=== PATIENT | female | born 1995 | race Caucasian/White ===

== ENCOUNTER 2017-08-25 10:41 | Emergency (ER) | payer SELFPAY ==
[2017-08-25] MEDS ORDERED: NORMAL SALINE 1000 ML 1,000 ML IV ONE (10:48)
[2017-08-25] MEDS ORDERED: ONDANSETRON HCL INJ/PF 4 MG/2 ML SDV IV ONE (10:48)
--- NOTE | 2017-08-25 10:55 | ER Document Report ---
ED Medical Screen (RME) - General Chief Complaint: Nausea/Vomiting/Diarrhea Stated Complaint: VOMITING Mode of Arrival: Ambulatory Information source: Patient Notes: 22 y.o female presents to the ED with N/V/D of onset around 0500 this morning and notes that her daughter has had similar sx. Pt also notes that she is 9 days late on her menstrual cycle and would like to be tested. I have greeted and performed a rapid initial assessment of the patient. A comprehensive ED assessment and evaluation of the patient, analysis of test results, and completion of the medical decision making process will be conducted by additional ED providers. TRAVEL OUTSIDE OF THE [place] IN LAST 30 DAYS: No - Related Data Allergies/Adverse Reactions: No Known Allergies Allergy (Verified 08/25/17 10:49) Past Medical History - General Information source: Patient Last Menstrual Period: 9 days late Review of Systems - Review of Systems Constitutional: No symptoms reported EENT: No symptoms reported Cardiovascular: No symptoms reported Respiratory: No symptoms reported Gastrointestinal: See HPI, Diarrhea, Nausea, Vomiting Genitourinary: See HPI Female Genitourinary: See HPI, Other - 9 days late on cycle Musculoskeletal: No symptoms reported Skin: No symptoms reported Hematologic/Lymphatic: No symptoms reported Neurological/Psychological: No symptoms reported -: Yes All other systems reviewed and negative Physical Exam - Vital signs Vitals: Temp Pulse Resp BP Pulse Ox 98.3 F 96 16 112/66 96 08/25/17 10:44 08/25/17 10:44 08/25/17 10:44 08/25/17 10:44 08/25/17 10:44 - Notes Notes: Physical Exam: General: Alert, appears well. HEENT: Normocephalic. Atraumatic. PERRLA. Extraocular movements intact. Oropharynx clear. mucus membrane dry. Neck: Supple. Respiratory: No respiratory distress. Abdominal: Normal Inspection. No distension. Extremities: Moves all four extremities. Neurological: Normal cognition. AAOx4. Normal speech. Psychological: Normal affect. Normal Mood. Skin: Warm. Dry. Normal color. Course - Vital Signs Vital signs: Temp Pulse Resp BP Pulse Ox 98.3 F 96 16 112/66 96 08/25/17 10:44 08/25/17 10:44 08/25/17 10:44 08/25/17 10:44 08/25/17 10:44 Scribe Documentation - Scribe Written by Van:: Van Mckeon 08/25/17 1054 acting as scribe for :: Alireza
--- NOTE | 2017-08-25 11:25 | ER Document Report ---
ED GI/ - General Chief Complaint: Nausea/Vomiting/Diarrhea Stated Complaint: VOMITING Time Seen by Provider: 08/25/17 10:50 Mode of Arrival: Ambulatory Notes: 22-year-old female to emergency department with nausea vomiting and diarrhea. Daughter had the same a couple of days ago and required IV treatment at hospital. Daughter is doing better at this time. 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 Denies any significant abdominal pain. Patient is concerned because she has missed her period and is approximately 9 days late TRAVEL OUTSIDE OF THE [place] IN LAST 30 DAYS: No - HPI Patient complains to provider of: Diarrhea, Vomiting. No: Onset: This morning Timing/Duration: Gradual Quality of pain: Achy Severity at maximum: Moderate Context: denies: Bad food, Lifting, Out of the country travel, , Recent trauma, Other Vaginal bleeding (Compared to normal period): None - Related Data Allergies/Adverse Reactions: No Known Allergies Allergy (Verified 08/25/17 10:49) Past Medical History - General Information source: Patient Last Menstrual Period: 9 days late - Social History Smoking Status: Current Every Day Smoker Cigarette use (# per day): Yes Chew tobacco use (# tins/day): No Frequency of alcohol use: Social Drug Abuse: None Lives with: Family Family History: Reviewed & Not Pertinent Patient has suicidal ideation: No Patient has homicidal ideation: No Renal/ Medical History: Denies: Hx Peritoneal Dialysis Review of Systems - Review of Systems Constitutional: denies: Fever, Malaise, Weakness EENT: denies: Ear pain, Nose pain, Mouth pain Cardiovascular: denies: Palpitations, Heart racing, Orthopnea, Syncope, Dizziness, Lightheaded Respiratory: denies: Cough, Short of breath, Wheezing Gastrointestinal: Diarrhea, Nausea, Vomiting. denies: Abdominal pain Genitourinary: denies: Burning, Dysuria, Discharge Female Genitourinary: denies: , Irregular period, Vaginal discharge, Vaginal bleeding, Vaginal odor Musculoskeletal: denies: Back pain, Gout, Joint pain, Muscle pain Skin: denies: Lesions, Lumps, Rash Hematologic/Lymphatic: denies: Anemia, Blood clots, Easy bleeding Neurological/Psychological: denies: Confusion, Weakness, Numbness Physical Exam - Vital signs Vitals: Temp Pulse Resp BP Pulse Ox 98.3 F 96 16 112/66 96 08/25/17 10:44 08/25/17 10:44 08/25/17 10:44 08/25/17 10:44 08/25/17 10:44 Interpretation: Normal - General General appearance: Appears well, Alert - HEENT Head: Normocephalic, Atraumatic Eyes: Normal Pupils: PERRL - Respiratory Respiratory status: No respiratory distress Chest status: Nontender Breath sounds: Normal Chest palpation: Normal - Cardiovascular Rhythm: Regular Heart sounds: Normal auscultation Murmur: No - Abdominal Inspection: Normal Distension: No distension Bowel sounds: Normal Tenderness: Nontender Organomegaly: No organomegaly - Back Back: Normal, Nontender - Extremities General upper extremity: Normal inspection, Nontender, Normal color, Normal ROM , Normal temperature General lower extremity: Normal inspection, Nontender, Normal color, Normal ROM , Normal temperature, Normal weight bearing. No: Aleksandr's sign - Neurological Neuro grossly intact: Yes Cognition: Normal Orientation: AAOx4 [place] Coma Scale Eye Opening: Spontaneous [place] Coma Scale Verbal: Oriented Amrit Coma Scale Motor: Obeys Commands [place] Coma Scale Total: 15 Speech: Normal Motor strength normal: LUE, RUE, LLE, RLE Sensory: Normal - Psychological Associated symptoms: Normal affect, Normal mood - Skin Skin Temperature: Warm Skin Moisture: Dry Skin Color: Normal Course - Re-evaluation Re-evalutation: 08/25/17 11:47 Well-appearing female in no acute distress. Patient's hCG urine test was negative but patient is convinced that she is . Requested blood draw. Will oblige. We will give her another liter of normal saline as well as some Pepcid. Likely viral gastroenteritis but will continue to observe and get her feeling better before discharge 08/25/17 13:02 Urine Color YELLOW 08/25/17 10:57 Urine Appearance CLOUDY 08/25/17 10:57 Urine pH 8.0 (5.0-9.0) 08/25/17 10:57 Ur Specific [place] 1.028 08/25/17 10:57 Urine Protein 100 mg/dL (NEGATIVE) H 08/25/17 10:57 Urine Glucose (UA) NEGATIVE mg/dL (NEGATIVE) 08/25/17 10:57 Urine Ketones NEGATIVE mg/dL (NEGATIVE) 08/25/17 10:57 Urine Blood NEGATIVE (NEGATIVE) 03/17/18 10:57 Urine Nitrite NEGATIVE (NEGATIVE) 08/25/17 10:57 Ur Leukocyte Esterase NEGATIVE (NEGATIVE) 08/25/17 10:57 Urine WBC (Auto) 3 /HPF 08/25/17 10:57 Urine RBC (Auto) 5 /HPF 08/25/17 10:57 Not . Will DC at this time. - Vital Signs Vital signs: Temp Pulse Resp BP Pulse Ox 98.3 F 96 16 112/66 96 08/25/17 10:44 08/25/17 10:44 08/25/17 10:44 08/25/17 10:44 08/25/17 10:44 - Laboratory Laboratory results interpreted by me: 08/25/17 10:57 Urine Protein 100 H Discharge - Discharge Clinical Impression: Gastroenteritis Condition: Good Disposition: HOME, SELF-CARE Instructions: Antinausea Medication ([facility]), Gastroenteritis (adult) ([facility]) Additional Instructions: If symptoms get worse or you develop abdominal pain or worsening symptoms, blood in your stool or other concerns within the next 12-24 hours then please return. Prescriptions: Ondansetron [Zofran Odt 4 mg Tablet] 1 - 2 tab PO Q4H PRN #15 tab.rapdis PRN Reason: For Nausea/Vomiting Forms: Return to Work
[2017-08-25 11:28] LABS: APPEARANCE,URINE CLOUDY; BILIRUBIN,URINE NEGATIVE (NEGATIVE); COLOR,URINE YELLOW; GLUCOSE, URINE NEGATIVE (NEGATIVE); KETONES,URINE NEGATIVE (NEGATIVE); LEUKOCYTE ESTERASE,URINE NEGATIVE (NEGATIVE); NITRITE,URINE NEGATIVE (NEGATIVE); PROTEIN,URINE 100 mg/dL (NEGATIVE); URINE SPECIFIC GRAVITY 1.028; UROBILINOGEN,URINE NEGATIVE mg/dL (<2.0)
[2017-08-25] MEDS ORDERED: DEXTROSE 5%-NORMAL SALINE 1,000 ML IV ONE (11:44)
[2017-08-25] MEDS ORDERED: FAMOTIDINE INJ/PF 20 MG/2 ML SDV IV ONE (11:45)
[2017-08-25 13:26] VITALS: BP 107/60
== END 2017-08-25 13:31 | disposition home or self-care (01) ==
LOC: ER 10:41
DX: K52.9 Noninfective gastroenteritis and colitis, unspecified (principal); F17.210 Nicotine dependence, cigarettes, uncomplicated
CPT/HCPCS: 99283; 96361; 96374; 96375; 36415; 84702; 81025; 81001; J2405; J7030; S0028

== ENCOUNTER 2019-03-03 19:32 | Emergency (ER) | payer OTHER ==
--- NOTE | 2019-03-03 20:44 | ER Document Report ---
ED Medical Screen (RME) - General Chief Complaint: Abdominal Pain Stated Complaint: FLANK PAIN Time Seen by Provider: 03/03/19 20:28 Notes: 24-year-old female with PCOS presents to the emergency department for chief complaint of chronic right adnexal pain. Patient states that the pain has been present for 2 years and has recently gotten slightly worse. Patient states that when she reaches or turns to her right side it increases the pain. Patient is sexually active, denies any abnormal vaginal discharge but was "treated for chlamydia about a week ago and there is no more discharge", denies any urinary symptoms. Exam: Well-appearing in no acute distress, respirations are even and unlabored, abdominal exam deferred in triage I have greeted and performed a rapid initial assessment of this patient. A comprehensive ED assessment and evaluation of the patient, analysis of test results and completion of medical decision making process will be conducted by an additional ED providers. TRAVEL OUTSIDE OF THE [place] IN LAST 30 DAYS: No - Related Data Allergies/Adverse Reactions: No Known Allergies Allergy (Verified 08/25/17 10:49) Past Medical History Renal/ Medical History: Denies: Hx Peritoneal Dialysis Past Surgical History: Reports: Hx Oral Surgery - precancerous mouth lesion, Hx Tonsillectomy Physical Exam - Vital signs Vitals: Temp Pulse Resp BP Pulse Ox 98.5 F 81 14 134/69 H 100 03/03/19 19:43 03/03/19 19:43 03/03/19 19:43 03/03/19 19:43 03/03/19 19:43 Course - Vital Signs Vital signs: Temp Pulse Resp BP Pulse Ox 98.5 F 81 14 134/69 H 100 03/03/19 19:43 03/03/19 19:43 03/03/19 19:43 03/03/19 19:43 03/03/19 19:43
[2019-03-03 21:31] LABS: APPEARANCE,URINE CLOUDY; BILIRUBIN,URINE NEGATIVE (NEGATIVE); COLOR,URINE YELLOW; GLUCOSE, URINE NEGATIVE (NEGATIVE); KETONES,URINE NEGATIVE (NEGATIVE); LEUKOCYTE ESTERASE,URINE SMALL (NEGATIVE); NITRITE,URINE NEGATIVE (NEGATIVE); PROTEIN,URINE NEGATIVE (NEGATIVE); URINE SPECIFIC GRAVITY 1.014; UROBILINOGEN,URINE NEGATIVE mg/dL (<2.0)
--- NOTE | 2019-03-03 21:32 | RADIOLOGY REPORT (SQ) ---
EXAM DESCRIPTION: US PELVIS TRANSVAGINAL COMPLETED DATE/TME: 03/03/2019 20:44 CLINICAL HISTORY: 24 years, Female, RLQ pain hx PCOS Findings: Uterus is anteverted and measures 8.1 x 4.7 x 3.8 cm. IUD is in place. No abnormal uterine masses. Cervix is closed, measures 1.9 cm. Right ovary measures 3.7 x 2.7 x 2.4 cm. Left ovary measures 2.9 x 2.7 x 2.8 cm. Vascular flow preserved within both ovaries on color and spectral Doppler imaging. No abnormal adnexal lesions. No free fluid in the cul-de-sac. IMPRESSION: No abnormal adnexal masses. IUD is in place.
--- NOTE | 2019-03-03 23:40 | ER Document Report ---
ED General - General Chief Complaint: Abdominal Pain Stated Complaint: FLANK PAIN Time Seen by Provider: 03/03/19 20:28 Mode of Arrival: Ambulatory Information source: Patient TRAVEL OUTSIDE OF THE [place] IN LAST 30 DAYS: No - HPI Notes: Patient presents with a history of right lower quadrant abdominal pain. She states while she was working today she got the sudden onset of the pain. It was sharp and moderate. It was worse with movement and better with rest. It did radiate into her lower back. She states this is the typical pain she will get with her polycystic ovarian disease. She states upon arrival here her pain has now gone. She states the only thing she took today was 325 mg of Tylenol. She denies any vaginal discharge or bleeding. No fevers or vomiting. The pain was constant while lasted. - Related Data Allergies/Adverse Reactions: No Known Allergies Allergy (Verified 08/25/17 10:49) Past Medical History - General Information source: Patient - Social History Smoking Status: Current Every Day Smoker Frequency of alcohol use: None Drug Abuse: None Family History: Reviewed & Not Pertinent Patient has suicidal ideation: No Patient has homicidal ideation: No Renal/ Medical History: Denies: Hx Peritoneal Dialysis Past Surgical History: Reports: Hx Oral Surgery - precancerous mouth lesion, Hx Tonsillectomy Review of Systems - Review of Systems Constitutional: denies: Chills, Fever Cardiovascular: denies: Chest pain, Palpitations, Heart racing Gastrointestinal: Abdominal pain. denies: Diarrhea, Vomiting -: Yes All other systems reviewed and negative Physical Exam - Vital signs Vitals: Temp Pulse Resp BP Pulse Ox 98.5 F 81 14 134/69 H 100 03/03/19 19:43 03/03/19 19:43 03/03/19 19:43 03/03/19 19:43 03/03/19 19:43 Interpretation: Normal - General General appearance: Appears well, Alert - HEENT Head: Normocephalic, Atraumatic Eyes: Normal Pupils: PERRL - Respiratory Respiratory status: No respiratory distress Chest status: Nontender Breath sounds: Normal Chest palpation: Normal - Cardiovascular Rhythm: Regular Heart sounds: Normal auscultation Murmur: No - Abdominal Inspection: Normal Distension: No distension Bowel sounds: Normal Tenderness: Nontender Organomegaly: No organomegaly - Back Back: Normal, Nontender - Extremities General upper extremity: Normal inspection, Nontender, Normal color, Normal ROM, Normal temperature General lower extremity: Normal inspection, Nontender, Normal color, Normal ROM, Normal temperature, Normal weight bearing. No: Aleksandr's sign - Neurological Neuro grossly intact: Yes Cognition: Normal Orientation: AAOx4 Amrit Coma Scale Eye Opening: Spontaneous Amrit Coma Scale Verbal: Oriented Amrit Coma Scale Motor: Obeys Commands [place] Coma Scale Total: 15 Speech: Normal Motor strength normal: LUE, RUE, LLE, RLE Sensory: Normal - Psychological Associated symptoms: Normal affect, Normal mood - Skin Skin Temperature: Warm Skin Moisture: Dry Skin Color: Normal Course - Re-evaluation Re-evalutation: 03/03/19 23:38 Patient reassessed just now. Her abdomen is soft nontender and nondistended. Vital signs are unremarkable. Ultrasound and laboratories are unremarkable. - Vital Signs Vital signs: Temp Pulse Resp BP Pulse Ox 98.5 F 81 14 134/69 H 100 03/03/19 19:43 03/03/19 19:43 03/03/19 19:43 03/03/19 19:43 03/03/19 19:43 - Laboratory Laboratory results interpreted by me: 03/03/19 21:02 Urine Blood SMALL H Ur Leukocyte Esterase SMALL H 03/03/19 23:38 Laboratory 03/03/19 21:02 Urine Color YELLOW Urine Appearance CLOUDY Urine pH 6.0 Ur Specific [place] 1.014 Urine Protein NEGATIVE Urine Glucose (UA) NEGATIVE Urine Ketones NEGATIVE Urine Blood SMALL H Urine Nitrite NEGATIVE Urine Bilirubin NEGATIVE Urine Urobilinogen NEGATIVE Ur Leukocyte Esterase SMALL H Urine WBC (Auto) 4 Urine RBC (Auto) 3 U Hyaline Cast (Auto) 1 Urine Bacteria (Auto) 1+ Squamous Epi Cells Auto 17 Urine Mucus (Auto) RARE Urine Ascorbic Acid NEGATIVE Urine HCG, Qual NEGATIVE - Diagnostic Test Radiology reviewed: Image reviewed, Reports reviewed Discharge - Discharge Clinical Impression: Abdominal pain, acute, right lower quadrant Condition: Stable Disposition: HOME, SELF-CARE Instructions: Abdominal Pain ([facility]) Additional Instructions: Please follow-up with your [facility] provider as soon as possible
[2019-03-03 23:53] VITALS: BP 111/73
== END 2019-03-03 23:49 | disposition home or self-care (01) ==
LOC: ER 19:32
DX: R10.9 Unspecified abdominal pain (principal); R10.31 Right lower quadrant pain; F17.200 Nicotine dependence, unspecified, uncomplicated
CPT/HCPCS: 76830; 81001; 81025; 93976; 99284

== ENCOUNTER 2019-03-27 09:04 | Emergency (ER) | payer OTHER ==
--- NOTE | 2019-03-27 11:51 | ER Document Report ---
ED Cardiac - General Chief Complaint: Chest Pain Stated Complaint: CHEST PALPITATIONS Time Seen by Provider: 03/27/19 11:34 Mode of Arrival: Ambulatory TRAVEL OUTSIDE OF THE [place] IN LAST 30 DAYS: No - HPI Patient complains to provider of: Palpitations - Pt. has h/o CP and palpitations in the past with episode of her heart "pounding" after waking up this am and beating somewhat irregularly. She denies CP at present. She feels as if she is under a lot of stress at work. - Related Data Allergies/Adverse Reactions: No Known Allergies Allergy (Verified 03/27/19 10:42) Past Medical History - General Information source: Patient - Social History Smoking Status: Former Smoker Chew tobacco use (# tins/day): No Frequency of alcohol use: None Drug Abuse: None Family History: Reviewed & Not Pertinent Patient has suicidal ideation: No Patient has homicidal ideation: No Renal/ Medical History: Denies: Hx Peritoneal Dialysis Past Surgical History: Reports: Hx Oral Surgery - precancerous mouth lesion, Hx Tonsillectomy Review of Systems - Review of Systems Constitutional: No symptoms reported EENT: No symptoms reported Cardiovascular: See HPI, Palpitations Respiratory: No symptoms reported Gastrointestinal: No symptoms reported Musculoskeletal: No symptoms reported Neurological/Psychological: No symptoms reported -: Yes All other systems reviewed and negative Physical Exam - Vital signs Vitals: Temp Pulse Resp BP Pulse Ox 98.3 F 67 16 130/75 H 99 03/27/19 09:36 03/27/19 09:36 03/27/19 09:36 03/27/19 09:36 03/27/19 09:36 - General General appearance: Appears well In distress: None - HEENT Pharynx: Normal Neck: Normal - Respiratory Respiratory status: No respiratory distress Breath sounds: Normal - Cardiovascular Rhythm: Regular Heart sounds: Normal auscultation Murmur: No - Abdominal Inspection: Normal Tenderness: Nontender Organomegaly: No organomegaly - Extremities General upper extremity: Normal inspection General lower extremity: Normal inspection - Neurological Neuro grossly intact: Yes Cognition: Normal Orientation: AAOx4 Speech: Normal Course - Re-evaluation Re-evalutation: 03/27/19 13:17 Pt. feels better at the end of the w/u. She has expressed a desire to go home. I will give her the name of a PCP to F/U with for Echocardiogram and Event monitor. - Vital Signs Vital signs: Temp Pulse Resp BP Pulse Ox 98.3 F 67 17 105/60 99 03/27/19 09:36 03/27/19 09:36 03/27/19 13:00 03/27/19 12:01 03/27/19 13:00 - Laboratory Result Diagrams: 03/27/19 12:27 03/27/19 12:27 Laboratory results interpreted by me: 03/27/19 12:27 Chloride 108 H Creatinine 0.50 L - EKG Interpretation by Me EKG shows normal: Sinus rhythm Rate: Tachycardia Rhythm: NSR - borderline sinus tach without acute change Discharge - Discharge Clinical Impression: Palpitations Condition: Stable Disposition: HOME, SELF-CARE Additional Instructions: Rest, continue current meds, return if worse Referrals: JERSEY VIVAS MD [ACTIVE STAFF] - Follow up as needed
--- NOTE | 2019-03-27 12:33 | RADIOLOGY REPORT (SQ) ---
EXAM DESCRIPTION: CHEST 2 VIEWS COMPLETED DATE/TIME: 03/27/2019 12:19 pm REASON FOR STUDY: palpitations COMPARISON: None. EXAM PARAMETERS: NUMBER OF VIEWS: two views TECHNIQUE: Digital Frontal and Lateral radiographic views of the chest acquired. RADIATION DOSE: NA LIMITATIONS: none FINDINGS: LUNGS AND PLEURA: No opacities, masses or pneumothorax. No pleural effusion. MEDIASTINUM AND HILAR STRUCTURES: No masses or contour abnormalities. HEART AND VASCULAR STRUCTURES: Heart normal size. No evidence for failure. BONES: No acute findings. HARDWARE: None in the chest. OTHER: No other significant finding. IMPRESSION: NO ACUTE RADIOGRAPHIC FINDING IN THE CHEST. TECHNICAL DOCUMENTATION: JOB ID: [id number] [employer]- All Rights Reserved Reading location - IP/workstation name: [email or web address]
[2019-03-27 12:49] LABS: ABSOLUTE EOSINOPHILS # (AUTO) 0.2 10^3/uL (0.0-0.6); ABSOLUTE LYMPHOCYTES (AUTO) 1.6 10^3/uL (0.5-4.7); ABSOLUTE MONOCYTES (AUTO) 0.5 10^3/uL (0.1-1.4); ABSOLUTE NEUT (AUTO) 4.1 10^3/uL (1.7-8.2); BASOPHILS % (AUTO) 0.5 % (0-2); EOSINOPHILS % (AUTO) 2.4 % (0-6); HEMATOCRIT 38.1 % (36.0-47.0); HEMOGLOBIN 12.6 g/dL (12.0-15.5); LYMPHOCYTES % (AUTO) 25.2 % (13-45); MEAN CORPUSCULAR HEMOGLOBIN 27.6 pg (27.0-33.4); MEAN CORPUSCULAR HGB CONC 32.9 g/dL (32.0-36.0); MEAN CORPUSCULAR VOLUME 84 fl (80-97); MONOCYTES % (AUTO) 7.6 % (3-13); PLATELET COUNT 286 10^3/uL (150-450); RED BLOOD COUNT 4.56 10^6/uL (3.72-5.28); RED CELL DISTRIBUTION WIDTH 13.7 % (11.5-14.0); SEGMENTED NEUTROPHILS % (AUTO) 64.3 % (42-78); TOTAL CELLS COUNTED % (AUTO) 100 %; WHITE BLOOD COUNT 6.4 10^3/uL (4.0-10.5)
[2019-03-27 13:09] LABS: ALBUMIN 4.1 g/dL (3.5-5.0); ALKALINE PHOSPHATASE 78 U/L (38-126); ANION GAP 7 (5-19); ASPARTATE AMINO TRANSFERASE 20 U/L (14-36); BILIRUBIN,DIRECT 0.1 mg/dL (0.0-0.4); BILIRUBIN,TOTAL 0.3 mg/dL (0.2-1.3); BLOOD UREA NITROGEN 9 mg/dL (7-20); CALCIUM 9.3 mg/dL (8.4-10.2); CARBON DIOXIDE 25 mmol/L (22-30); CHLORIDE 108 mmol/L (98-107); CREATINE KINASE 63 U/L (30-135); GLUCOSE 87 mg/dL (75-110); POTASSIUM 4.2 mmol/L (3.6-5.0); TOTAL PROTEIN 7.3 g/dL (6.3-8.2)
[2019-03-27 13:21] LABS: CREATINE KINASE MB 0.22 ng/mL (<4.55)
[2019-03-27 13:22] LABS: TROPONIN I < 0.012 ng/mL
[2019-03-27 13:47] VITALS: BP 109/66
--- NOTE | 2019-03-28 07:21 | EKG REPORT ---
SEVERITY:- OTHERWISE NORMAL ECG - SINUS TACHYCARDIA : Confirmed by: Chloe Greenfield 28-Mar-2019 07:21:18
== END 2019-03-27 13:49 | disposition home or self-care (01) ==
LOC: ER 09:04
DX: R00.2 Palpitations (principal); Z87.891 Personal history of nicotine dependence
CPT/HCPCS: 36415; 71046; 80053; 82550; 82553; 84484; 85025; 93005; 93010; 99285

== ENCOUNTER 2019-06-18 06:47 | Day surgery (SDC) | payer OTHER ==
[2019-06-16 09:27] LABS: HEMATOCRIT 38.6 % (36.0-47.0); HEMOGLOBIN 12.8 g/dL (12.0-15.5); MEAN CORPUSCULAR HEMOGLOBIN 28.1 pg (27.0-33.4); MEAN CORPUSCULAR HGB CONC 33.3 g/dL (32.0-36.0); MEAN CORPUSCULAR VOLUME 84 fl (80-97); PLATELET COUNT 286 10^3/uL (150-450); RED BLOOD COUNT 4.58 10^6/uL (3.72-5.28); RED CELL DISTRIBUTION WIDTH 13.3 % (11.5-14.0)
--- NOTE | 2019-06-16 10:04 | EKG REPORT ---
SEVERITY:- NORMAL ECG - SINUS RHYTHM : Confirmed by: Chloe Greenfield 16-Jun-2019 10:04:28
[~2019-06-18 06:47] MED LIST: CEFAZOLIN 1 GM/D5W RTU 1 GM/50 ML RTUPB IV ONE; CEFAZOLIN 1 GM/D5W RTU 1 GM/50 ML RTUPB IV PRN; CEFAZOLIN SODIUM 1 GM in DEXTROSE 5%-WATER 50 ML IV PRN; CEFAZOLIN SODIUM 2 GM in DEXTROSE 5%-WATER 100 ML IV PRN; DEXTROSE 5%-LACTATED RINGERS 1,000 ML IV PRN
[2019-06-18] MEDS ORDERED: LIDOCAINE 1% INJ-PF (10 MG/ML) 30 ML SDV ONE ×2 (07:19→09:33)
[2019-06-18] MEDS ORDERED: MIDAZOLAM 2 MG/2 ML INJ ONE ×2 (08:52→09:24)
[2019-06-18] MEDS ORDERED: LIDOCAINE 2% INJ-PF (100 MG/5 ML) SYRINGE ONE (09:24)
[2019-06-18] MEDS ORDERED: DEXAMETHASONE SOD PHOSPHATE INJ 4 MG/1 ML VIAL ONE (09:24)
[2019-06-18] MEDS ORDERED: ONDANSETRON HCL INJ/PF 4 MG/2 ML SDV ONE (09:24)
[2019-06-18] MEDS ORDERED: PROPOFOL INJ 200 MG/20 ML VIAL IV ONE ×2 (09:24→09:36)
[2019-06-18] MEDS ORDERED: FENTANYL CITRATE INJ/PF 250 MCG/5 ML AMPULE ONE (09:24)
[2019-06-18] MEDS ORDERED: LIDOCAINE 1% INJ-PF (10 MG/ML) 30 ML SDV INJ ONE (10:20)
[2019-06-18] MEDS ORDERED: FENTANYL CITRATE INJ/PF 100 MCG/2 ML AMPUL IV PRN ×3 (10:37)
[2019-06-18] MEDS ORDERED: MEPERIDINE HCL/PF INJ 25 MG/1 ML DISP.SYRIN IV PRN (10:37)
[2019-06-18] MEDS ORDERED: PROMETHAZINE HCL INJ 25 MG/1 ML VIAL IV PRN ×2 (10:37)
[2019-06-18] MEDS ORDERED: DIPHENHYDRAMINE HCL 50 MG/ML VIAL IV PRN (10:37)
[2019-06-18] MEDS ORDERED: MORPHINE SULFATE 10 MG/ML INJ IV PRN (10:37)
[2019-06-18] MEDS ORDERED: MICROFIBRILLAR COLLAGEN 1 GM PACK ONE (10:51)
--- NOTE | 2019-06-18 11:17 | Discharge Summary ---
Discharge Summary (SDC) - Discharge Final Diagnosis: Fibrofatty lipoma posterior cervical region Date of Surgery: 06/18/19 Discharge Date: 06/18/19 Condition: Good Treatment or Instructions: Leave bulky dressing on for 48 hours then remove; teach drain care; record drain output; prescription for pain medication on chart: May shower in 48 hours: Return to [facility] in 1 week Discharge Diet: As Tolerated Discharge Activity: Activity As Tolerated, No Lifting Over 10 Pounds, No Lifting/Push/Pulling Home Care Assistance: None Needed Report the Following to Your Physician Immediately: Shortness of Breath, Increase in Pain, Fever over 101 Degrees
--- NOTE | 2019-06-18 11:23 | Operative Report ---
Operative Report DATE OF SURGERY: 06/18/19 PREOPERATIVE DIAGNOSIS: Fibrofatty lipoma of the posterior cervical-upper thora cic back POSTOPERATIVE DIAGNOSIS: Same OPERATION: 1. Excision of large fibrofatty lipoma of the posterior cervical- thoracic area. 2. Drainage of operative bed SURGEON: JAVY MAGALLANES ANESTHESIA: GA TISSUE REMOVED OR ALTERED: Fibrofatty lipoma of the posterior cervical area COMPLICATIONS: None ESTIMATED BLOOD LOSS: 75 cc INTRAOPERATIVE FINDINGS: See below PROCEDURE: The patient was marked in the preop holding area then taken to the main operating room where general anesthesia was induced. The patient was then placed in the prone position arms extended over head. Posterior cervical and upper thoracic areas exposed, hair taped out of the way, and the posterior neck and upper back prepped with Betadine. Surgical plan and surgical timeout were conducted. The palpable mass approximately 8 cm in craniocaudad direction approximately 12 cm in orthogonal direction was marked on the skin. Then marked a horizontal line in the center of this ellipse proximately 5 cm in length. The skin and subcutaneous tissue was anesthetized with a 1% plain lidocaine, and quarter percent Marcaine. A horizontal incision was made with a #10 blade, and the dissection was undertaken. Superior, inferior lateral and medial skin flaps were raised in a circumferential fashion extending to the of the lipoma. The lipoma was then taken off of the trapezius fascia with electrocautery. This was not a discrete lipoma but a mass of fibrofatty tissue. 2 areas of the trapezius fascia were supposed. Bleeders were cauterized or oversewn with 2-0 Vicryl suture as encountered. The mass was removed from the patient's upper back, and weighed out at 90 g. It was sent to pathology for permanent analysis. We checked the wound for bleeding and there was none. A large Greg drain was brought out of the patient's inferior skin flap in midline using a #15 blade, and secured to the skin with 2-0 silk suture. The drain was trimmed proximally and distally. The functional end of the drain was placed in the wound bed, and the wound closed at the dermal level with 2-0 Vicryl and the skin with 4-0 Ethilon suture. Benzoin Steri-Strips bulky 4 x 4's applied to the wound. The patient was rotated into the supine position, then extubated and taken to recovery room in stable condition.
[2019-06-18] MEDS ORDERED: PROMETHAZINE HCL INJ 25 MG/1 ML VIAL ONE (11:32)
[2019-06-18] MEDS: FENTANYL CITRATE INJ/PF 100 MCG/2 ML AMPUL ONE ×2 (11:33→11:40)
[2019-06-18] MEDS ORDERED: ACETAMINOPHEN 1,000 MG/100 ML RTUPB IV ONE (11:57)
[2019-06-18] MEDS ORDERED: KETOROLAC TROMETHAMINE 10 MG TABLET ONE (12:28)
[2019-06-18] MEDS ORDERED: SUCCINYLCHOLINE CHLORIDE INJ 200 MG/10 ML VIAL ONE (12:33)
[2019-06-18 14:08] VITALS: BP 111/70
== END 2019-06-18 13:20 | disposition home or self-care (01) ==
LOC: OROUT 06:47
PROVIDERS: ATTEND Surgery
DX: D17.1 Benign lipomatous neoplasm of skin and subcutaneous tissue of trunk (principal); E66.9 Obesity, unspecified; E88.81 Metabolic syndrome and other insulin resistance; Z88.5 Allergy status to narcotic agent; F17.210 Nicotine dependence, cigarettes, uncomplicated; Z79.84 Long term (current) use of oral hypoglycemic drugs; I49.9 Cardiac arrhythmia, unspecified
CPT/HCPCS: 93005; 36415 ×2; 84703; 85027; 88304 ×2; 93010; 00300; 21931; J2250; J0690 ×2; J1100; J3010 ×2; J3490 ×3; J2001; J2550; J0330; J2405; J7060; J2704; J0131; 300

== ENCOUNTER 2019-12-18 08:46 | Day surgery (SDC) | payer OTHER ==
[~2019-12-18 08:46] MED LIST changes: -CEFAZOLIN 1 GM/D5W RTU 1 GM/50 ML RTUPB IV ONE; -CEFAZOLIN 1 GM/D5W RTU 1 GM/50 ML RTUPB IV PRN; -CEFAZOLIN SODIUM 1 GM in DEXTROSE 5%-WATER 50 ML IV PRN; -CEFAZOLIN SODIUM 2 GM in DEXTROSE 5%-WATER 100 ML IV PRN; -DEXTROSE 5%-LACTATED RINGERS 1,000 ML IV PRN; +LIDOCAINE 0.5% INJ-PF (5 MG/ML) 50 ML SDV ONE; +PROPOFOL INJ 200 MG/20 ML VIAL IV ONE
[2019-12-18] MEDS ORDERED: PROPOFOL INJ 200 MG/20 ML VIAL IV ONE (10:00)
--- NOTE | 2019-12-18 10:32 | Operative Report ---
Operative Report DATE OF SURGERY: 12/18/19 Operative Report: The risk, benefits and alternatives of the procedure including the risk of bleeding, perforation requiring surgery have been explained to the patient in detail and informed consent has been obtained. The patient is placed in a left, lateral decubital position. Timeout was called. Propofol medication is administered. Rectal examination is done which did not reveal any masses, tears or fissures. An Olympus videoscope was introduced into the patient's rectum. Scope was then carefully advanced all the way to the cecum. Intubation of the terminal ileum was done. Scope was then sequentially pulled back via the various segments of the colon including the ascending colon, hepatic flexure, transverse colon, splenic flexure, descending colon and finally into the rectosigmoid portions of the colon. Retroflexion maneuver is performed. The risks benefits and alternatives of the procedure explained to the patient in detail and informed consent is obtained.A GIF Olympus video scope was inserted into the patient's mouth and hypopharynx, the esophagus is identified intubated and insufflated ,the scope was then advanced through the esophagus stomach and duodenum, retroflexion maneuver is done ,the esophagus stomach and first and second portions of the duodenum examined PREOPERATIVE DIAGNOSIS: Rectal bleeding. nausea vomiting POSTOPERATIVE DIAGNOSIS: Mild terminal ileitis status post biopsy. Internal hemorrhoids. Gastritis status post biopsy OPERATION: Colonoscopy with biopsy. EGD with biopsy SURGEON: SANNA TEMPLE ANESTHESIA: LMAC TISSUE REMOVED OR ALTERED: As noted above. COMPLICATIONS: None. ESTIMATED BLOOD LOSS: None. INTRAOPERATIVE FINDINGS: None. PROCEDURE: Patient tolerated the procedure well. No immediate postprocedure complications are noted. Patient is discharged in good condition. Discharge date 12/18/2019. Discharge diet: Regular. Discharge activity: Regular. 2 to 3-week follow-up to discuss findings. Patient is instructed to call the office or proceed to the emergency room should there be any further problems or questions. Wait on the pathology.
[2019-12-18 11:11] VITALS: BP 108/72
== END 2019-12-18 11:15 | disposition home or self-care (01) ==
LOC: END 08:46
PROVIDERS: ATTEND Internal Medicine Gastroenterology
DX: K62.5 Hemorrhage of anus and rectum (principal); K52.9 Noninfective gastroenteritis and colitis, unspecified; K64.8 Other hemorrhoids; K29.50 Unspecified chronic gastritis without bleeding; Z79.899 Other long term (current) drug therapy; E66.9 Obesity, unspecified
CPT/HCPCS: 43239; 45380; 87635; 88305 ×2; 00813; J2704; C9803; 813; J3490

== ENCOUNTER → 2020-01-16 | Outpatient (CLI) | payer OTHER ==
--- NOTE | 2020-01-16 12:07 | RADIOLOGY REPORT (SQ) ---
EXAM DESCRIPTION: U/S ABDOMEN LIMITED W/O DOP IMAGES COMPLETED DATE/TIME: 01/16/2020 11:56 am REASON FOR STUDY: RUQ PAIN (R10.11) R10.11 RIGHT UPPER QUADRANT PAIN COMPARISON: None. TECHNIQUE: Dynamic and static grayscale images acquired of the abdomen and recorded on PACS. Additio nal selected color Doppler and spectral images recorded. LIMITATIONS: None. FINDINGS: PANCREAS: No masses. Visualized pancreatic duct normal caliber. LIVER: The liver is echogenic consistent with fatty infiltration. No focal masses. LIVER VASCULATURE: Normal directional flow of the main portal vein and hepatic veins. GALLBLADDER: No stones. Normal wall thickness. No pericholecystic fluid. ULTRASOUND-DETECTED PATRICK'S SIGN: Negative. INTRAHEPATIC DUCTS AND COMMON DUCT: CBD and intrahepatic ducts normal caliber. No filling defects. AORTA: No aneurysm. RIGHT KIDNEY: Normal size. Normal echogenicity. No solid or suspicious masses. No hydronephrosis. No calcifications. PERITONEAL AND RIGHT PLEURAL SPACE: No ascites or effusions. OTHER: No other significant findings. IMPRESSION: Mildly echogenic liver consistent with fatty replacement. No other significant findings . TECHNICAL DOCUMENTATION: JOB ID: [id number] 2010 [employer]- All Rights Reserved Reading location - IP/workstation name: [email or web address]
--- NOTE | 2020-01-16 14:29 | RADIOLOGY REPORT (SQ) ---
EXAM DESCRIPTION: NM HIDA SCAN WITH CCK IMAGES COMPLETED DATE/TIME: 01/16/2020 2:10 pm REASON FOR STUDY: RUQ PAIN (R10.11) R10.11 RIGHT UPPER QUADRANT PAIN COMPARISON: Ultrasound done earlier the same day. RADIONUCLIDE AND DOSE: DOSAGE RADIONUCLIDE: 5.28 millicuries Tc99m Mebrofenin. DOSAGE CCK: 2.0 micrograms. DOSAGE MORPHINE: Not required. The route of agent administration: Intravenous TECHNIQUE: Serial imaging right upper quadrant up to 60 minutes following injection of radionuclide. CCK injected after gallbladder visualized. LIMITATIONS: None. FINDINGS: LIVER: Normal visualization without areas of photopenia. INTRA AND EXTRAHEPATIC BILE DUCTS: Normal accumulation of activity. GALLBLADDER: Normal visualization. Calculated Ejection Fraction of 4%. Below the normal value of 35% or greater. PHYSICAL RESPONSE: Patients presenting complaint was reproduced. OTHER: No other significant finding. IMPRESSION: LOW GALLBLADDER EJECTION FRACTION. EVIDENCE FOR BILIARY DYSKINESIS. NO CYSTIC OR COMMO N DUCT OBSTRUCTION. TECHNICAL DOCUMENTATION: JOB ID: [id number] 2010 [employer]- All Rights Reserved Reading location - IP/workstation name: [email or web address]
== END ==
LOC: RAD 11:14
PROVIDERS: ATTEND Pediatrics Neonatal-Perinatal Medicine
DX: R10.11 Right upper quadrant pain (principal)
CPT/HCPCS: 76705; 78227; J2805; A9537; Q9969

== ENCOUNTER 2020-02-19 21:45 | Emergency (ER) | payer OTHER ==
--- NOTE | 2020-02-19 23:41 | ER Document Report ---
ED Medical Screen (RME) - General Chief Complaint: Abdominal Pain Stated Complaint: UPPER RIGHT ABDOMINAL PAIN/GALL BLADDER ATTACK Primary Care Provider: MARIA EUGENIA JIMENEZ MD [Primary Care Provider] - Follow up as needed Notes: 25-year-old female with past medical history of nonfunctioning gallbladder presenting this evening with acute onset of sharp stabbing right upper quadrant pain 2 hours ago. She has an appointment for removal of her gallbladder on the 16th of this month. No nausea or vomiting. Is having multiple bowel movements. Has not changed her diet. No fevers, chills, or additional symptoms. Physical exam: Patient holding right side of her abdomen. Right upper quadrant is tender to palpation. No rashes or lesions noted. I have greeted and performed a rapid initial assessment of this patient. A comprehesive ED assessment and evaluation of this patient, analysis of test results and completion of the medical decision-making process will be conducted by additional ED providers. TRAVEL OUTSIDE OF THE [place] IN LAST 30 DAYS: No - Related Data Home Medications: GERD Past Medical History - Social History Frequency of alcohol use: Social Drug Abuse: None - Past Medical History Cardiac Medical History: Denies: Hx Coronary Artery Disease, Hx Heart Attack, Hx Hypertension Pulmonary Medical History: Reports: Hx Asthma - MILD Denies: Hx Bronchitis, Hx COPD, Hx Pneumonia Neurological Medical History: Denies: Hx Cerebrovascular Accident, Hx Seizures Renal/ Medical History: Denies: Hx Peritoneal Dialysis Musculoskeltal Medical History: Denies Hx Arthritis Past Surgical History: Reports: Hx Oral Surgery - precancerous mouth lesion, Hx Tonsillectomy - Immunizations Hx Diphtheria, Pertussis, Tetanus Vaccination: Yes Doctor's Discharge - Discharge Referrals: MARIA EUGENIA JIMENEZ MD [Primary Care Provider] - Follow up as needed
[2020-02-19] MEDS ORDERED: HYDROCODONE/ACETAMINOPHEN 5-325 MG TABLET PO ONE (23:45)
== END 2020-02-20 01:31 | disposition left against medical advice (07) ==
LOC: ER 21:45
DX: Z53.20 Procedure and treatment not carried out because of patient's decision for unspecified reasons (principal); K82.9 Disease of gallbladder, unspecified; R10.9 Unspecified abdominal pain; R10.11 Right upper quadrant pain
CPT/HCPCS: 99284

== ENCOUNTER 2020-02-25 08:23 | Day surgery (SDC) | payer OTHER ==
[2020-02-20 12:22] LABS: HEMATOCRIT 37.9 % (36.0-47.0); HEMOGLOBIN 12.7 g/dL (12.0-15.5); MEAN CORPUSCULAR HEMOGLOBIN 27.8 pg (27.0-33.4); MEAN CORPUSCULAR HGB CONC 33.5 g/dL (32.0-36.0); MEAN CORPUSCULAR VOLUME 83 fl (80-97); PLATELET COUNT 318 10^3/uL (150-450); RED BLOOD COUNT 4.56 10^6/uL (3.72-5.28); RED CELL DISTRIBUTION WIDTH 14.1 % (11.5-14.0); WHITE BLOOD COUNT 6.8 10^3/uL (4.0-10.5)
[2020-02-20 12:48] LABS: ALBUMIN 4.5 g/dL (3.5-5.0); ALKALINE PHOSPHATASE 92 U/L (38-126); AMYLASE 35 U/L (30-110); ANION GAP 11 (5-19); ASPARTATE AMINO TRANSFERASE 22 U/L (14-36); BILIRUBIN,DIRECT 0.3 mg/dL (0.0-0.4); BILIRUBIN,TOTAL 0.4 mg/dL (0.2-1.3); BLOOD UREA NITROGEN 12 mg/dL (7-20); CARBON DIOXIDE 23 mmol/L (22-30); CHLORIDE 108 mmol/L (98-107); GLUCOSE 91 mg/dL (75-110); POTASSIUM 4.2 mmol/L (3.6-5.0); TOTAL PROTEIN 7.4 g/dL (6.3-8.2)
[~2020-02-25 08:23] MED LIST changes: +ACETAMINOPHEN 325 MG TABLET PO PRN; +CEFAZOLIN 1 GM/D5W RTU 1 GM/50 ML RTUPB IV PRN; +LACTATED RINGERS 1000 ML IV PRN; -LIDOCAINE 0.5% INJ-PF (5 MG/ML) 50 ML SDV ONE; +LIDOCAINE 0.5% INJ-PF (5 MG/ML) 50 ML SDV SUBCUT PRN; -PROPOFOL INJ 200 MG/20 ML VIAL IV ONE
[2020-02-25] MEDS ORDERED: CEFAZOLIN 1 GM/D5W RTU 1 GM/50 ML RTUPB IV ONE (08:41)
[2020-02-25] MEDS ORDERED: PROPOFOL INJ 200 MG/20 ML VIAL IV ONE (09:18)
[2020-02-25] MEDS ORDERED: HYDROMORPHONE HCL INJ/PF 2 MG/ML AMPULE ONE (09:18)
[2020-02-25] MEDS ORDERED: MIDAZOLAM 2 MG/2 ML INJ ONE (09:18)
[2020-02-25] MEDS ORDERED: BUPIVACAINE HCL 0.25 % INJ/PF (2.5 MG/1 ML) 30 ML VIAL ONE (10:43)
[2020-02-25] MEDS ORDERED: MEPERIDINE HCL/PF INJ 25 MG/1 ML DISP.SYRIN IV PRN (11:48)
[2020-02-25] MEDS ORDERED: OXYCODONE-ACETAMINOPHEN 5-325 MG TABLET PO PRN ×3 (11:48→12:14)
[2020-02-25] MEDS ORDERED: PROMETHAZINE HCL INJ 25 MG/1 ML VIAL IV PRN ×2 (11:48)
[2020-02-25] MEDS ORDERED: ONDANSETRON HCL INJ/PF 4 MG/2 ML SDV IV PRN (11:48)
[2020-02-25] MEDS ORDERED: FENTANYL CITRATE INJ/PF 100 MCG/2 ML AMPUL IV PRN ×3 (11:48)
[2020-02-25] MEDS ORDERED: DIPHENHYDRAMINE HCL 50 MG/ML VIAL IV PRN (11:48)
--- NOTE | 2020-02-25 12:14 | Discharge Summary ---
Discharge Summary (SDC) - Discharge Final Diagnosis: biliary dyskinesia Date of Surgery: 02/25/20 Discharge Date: 02/25/20 Condition: Good Treatment or Instructions: [facility] [address], [place] [address] Discharge Instructions: Laparoscopic Surgery 1. General Information: a. DO NOT DRIVE a car or operate dangerous machinery for 3-4 days or while taking narcotic pain pills. b. DO NOT consume alcohol, tranquilizers, sleeping medications or any non- prescribed medications for 24 hours unless approved by your doctor or as long as taking narcotic prescription medications. c. DO NOT make important decisions or sign any important papers for the first 24 hours after surgery. d. When discharged home the same day of surgery have a responsible person with you for the first night. 2. Activity Restrictions: 2 weeks a. NO heavy lifting, straining abdominal muscles, bending over a lot, yard work, house work, or sports for [address] NOT drive for 3-4 days. c. It is fine to go for walks, up and down steps, ride in a car. d. Elevate your head when sleeping/resting. 3. Treatment: a. You may shower 24 hours after surgery, no baths or swimming for 2 weeks. Remove band-aids or dressings before shower but leave paper strips (steri- strips) on the skin to fall off on their own. If still on at postoperative visit they will be removed then. b. Drainage of fluid or blood is not unusual from an incision. If occurs, you can clean with peroxide and cotton ball daily and cover with dry gauze until the wound seals. c. If a lot of bleeding occurs, you can hold pressure with a gauze or cloth over the site for 10 minutes and it will usually stop. If bleeding continues you will need to call for possible evaluation in office or emergency room. 4. Medications: a. _Toradol 10mg_ may be taken for pain as needed, one tablets every 6 hours. Do not take additional NSAIDs with Toradol. You may take Tylenol as needed. b. You should resume all normal medications unless a change is specified by your doctors. 5. Diet: Begin with clear liquids and may progress to your normal diet if not nauseated. No high fat, high protein foods the day of surgery. 6. The following may occur after laparoscopic surgery: a. Shoulder or upper back ache from retained gas that should resolve in 1-2 days b. Soreness and bruising at incision sites will resolve with time. c. Scrotal swelling (labia in women) and bruising is often seen after hernia surgery. d. Sore throat e. Fatigue may last days to weeks. f. Difficulty urinating may occur and may need to come into emergency room for urinary catheter placement. 7. Notify Physician If: a. Worsening or pain not improved with pain medication b. Persistent nausea and vomiting c. Fever above 101 d. Persistent bleeding or swelling at operative site e. Unable to urinate and uncomfortable bladder 6-8 hours after surgery 8..Follow Up Care: a. Schedule a follow up appointment with your doctor for 2 weeks. In the event of any postoperative problems or questions or you may call the office during business hours or the On-Call physician evenings and weekends at [facility]. [facility] I understand the instructions for my postoperative care as described above and a copy has been given to me. Patient/Significant Other Witness Date Prescriptions: Ketorolac Tromethamine [Toradol 10 mg Tablet] 10 mg PO Q6HP PRN #20 tablet PRN Reason: Referrals: BARBARA RESENDEZ FNP [Primary Care Provider] - Discharge Diet: Other (Comments) - small bland portions then progress Discharge Activity: Balance Activity w/Rest, No Lifting/Push/Pulling, Walk Frequently Report the Following to Your Physician Immediately: Nausea, Vomiting, Increase in Pain, Fever over 101 Degrees, Unusual Bleeding, Redness, Swelling, Warmth, Increased Soreness, Drainage-Foul Smelling
--- NOTE | 2020-02-25 12:28 | Operative Report ---
Operative Report DATE OF SURGERY: 02/25/20 PREOPERATIVE DIAGNOSIS: Biliary dyskinesia POSTOPERATIVE DIAGNOSIS: Same OPERATION: Laparoscopic cholecystectomy SURGEON: JAVY MAGALLANES 1ST DISK SHARPENER: CARLITOS WATKINS ANESTHESIA: GA TISSUE REMOVED OR ALTERED: 1 gallbladder with contents COMPLICATIONS: none ESTIMATED BLOOD LOSS: Scant INTRAOPERATIVE FINDINGS: See below PROCEDURE: The patient was taken to the preop holding area to the main operating where general anesthesia was induced. The abdomen was exposed arms abducted abdominal wall prepped and draped in sterile fashion. Instrumentation set for laparoscopic cholecystectomy Surgical plan surgical timeout were conducted. Markings were made on the skin for four port laparoscopy. The skin was anesthetized 1% plain lidocaine. A supraumbilical vertical incision was made with a knife, 15 blade. Veress needle inserted the peritoneal cavity, pneumoperitoneum established, Veress needle 5 mm ports inserted a 5 mm 30 degree fixed the scope was inserted. Under direct visualization 3 additional ports were placed 2 in the sub-costal position normal in the subxiphoid position. There was no evidence of visceral or vascular injury The findings were significant for large amount of intra-abdominal fat. The falciform ligament was enlarged due to tissue. However of particular note was the configuration of the gallbladder in relation to the undersurface of the liver. The medial aspect of the bladder was adhesed to the left lobe of the liver just beneath the falciform ligament. The gallbladder then appeared to tapered towards the don hepatus in a more conventional fashion. We had the anesthesia decompress the stomach with a temporary orogastric tube. We elevated the left lobe of the liver, and falciform ligament up anteriorly, exposing the medial edge of the gallbladder. We took the attachments between the gallbladder wall, and the left lobe of the liver down under direct visualization. This allow the gallbladder to relax, and move more towards the right lobe, and follow the normal contour towards the don. We now dissected out the neck of the gallbladder and junction with the cystic duct, and cystic artery. Of note here these 2 structures were repositioned in that the stick duct was coming off medial to the cystic artery. We now dissected the gallbladder off of the liver plate so as to open up the triangle of Calot and provide the critical view. At this point the gallbladder was suspended solely by 2 structures going in towards the don hepatus. Multiple photos were taken. I got around these 2 structures with the camera in a circumferential fashion and confirmed that there were only 2 structures remaining to be divided, the more lateral structure being the cystic artery, and the more medial structure the cystic duct. The cystic artery was clipped twice proximally, once distally and divided with scissors. Additional photo was taken of the gallbladder suspended solely by the cystic duct. The cystic duct was clipped twice proximally, once distally, and divided with scissors. The gallbladder was removed from the patient through the supraumbilical port site after stretching the fascia. The specimen was sent to pathology for permanent analysis We returned the peritoneal cavity check for bleeding there was none. Clip position was felt to be excellent. Photos were taken of the cystic artery and cystic duct stumps with clips applied. This point felt the operation was complete. Sponge and counts are correct. All ports removed under direct visualization, pneumoperitoneum evacuated, and wounds closed with 0 Vicryl 3-0 Vicryl benzoin and Steri-Strips. Patient tolerated procedure well, extubated, taken recovery room stable condition The physician patient support assistant, Ms. Wadsworth, provided assistance during this case by: Assisting and port insertion, retracting tissue, instillation of local anesthesia and closure of skin incisions.
[2020-02-25] MEDS ORDERED: GLYCOPYRROLATE 1 MG/5 ML VIAL ONE (13:57)
[2020-02-25] MEDS ORDERED: KETOROLAC TROMETHAMINE 60 MG/2 ML SDV ONE (13:57)
[2020-02-25] MEDS ORDERED: ONDANSETRON HCL INJ/PF 4 MG/2 ML SDV ONE (13:57)
[2020-02-25] MEDS ORDERED: DEXAMETHASONE SOD PHOSPHATE INJ 4 MG/1 ML VIAL ONE (13:57)
[2020-02-25] MEDS ORDERED: LIDOCAINE 2% INJ-PF (20 MG/ML) 2 ML AMPUL ONE (13:57)
[2020-02-25] MEDS ORDERED: NEOSTIGMINE METHYLSULFATE 10 MG/10 ML VIAL ONE (13:57)
[2020-02-25] MEDS ORDERED: ROCURONIUM BROMIDE INJ 50 MG/5 ML VIAL IV ONE (13:57)
[2020-02-25] MEDS ORDERED: METOCLOPRAMIDE HCL INJ/PF 10 MG/2 ML SDV ONE (13:57)
[2020-02-25 14:13] VITALS: BP 109/62
== END 2020-02-25 14:10 | disposition home or self-care (01) ==
LOC: OROUT 08:23
PROVIDERS: ATTEND Surgery
DX: K81.1 Chronic cholecystitis (principal); Z88.5 Allergy status to narcotic agent; E66.9 Obesity, unspecified; E88.81 Metabolic syndrome and other insulin resistance; F17.210 Nicotine dependence, cigarettes, uncomplicated; Z03.818 Encounter for observation for suspected exposure to other biological agents ruled out
CPT/HCPCS: 86900; 86901; 36415 ×2; 86850; 82150; 85027; 87635; 81025; 80076; 80048; 88304 ×2; 00790; 47562; J2250; J0690; J3490 ×3; J1100; J1885; J2765; J2710; J1170; J2405; J2704; C9803; 790

== ENCOUNTER 2020-04-26 09:36 | Emergency (ER) | payer OTHER ==
--- NOTE | 2020-04-26 10:35 | ER Document Report ---
ED Medical Screen (RME) - General Chief Complaint: Low Back Pain Stated Complaint: BACK PAIN Time Seen by Provider: 04/26/20 10:32 Primary Care Provider: BARBARA RESENDEZ FNP [Primary Care Provider] - Follow up as needed Mode of Arrival: Ambulatory Information source: Patient Notes: 25-year-old female presented to ED for complaint of low back pain and pain to her right shoulder. The pain to her low back is in the center of her back going across her right buttocks and down her right leg. She states she did have surgery very on her and her of her upper back to remove redundant tissue and she is now having pain down the right arm that started about 2 weeks ago from the shoulder down. Get x-rays of the shoulder and the low back and she will be seen by another person. She denies any signs or symptoms of cauda equina. She states she has had a leaky bladder since having children but there has been going on for about 2 years. I have greeted and performed a rapid initial assessment of this patient. A comprehensive ED assessment and evaluation of the patient, analysis of test results and completion of medical decision making process will be conducted by an additional ED providers. TRAVEL OUTSIDE OF THE [place] IN LAST 30 DAYS: No - Related Data Allergies/Adverse Reactions: No Known Allergies Allergy (Verified 02/25/20 09:34) Past Medical History - Past Medical History Cardiac Medical History: Denies: Hx Coronary Artery Disease, Hx Heart Attack, Hx Hypertension Pulmonary Medical History: Reports: Hx Asthma - MILD Denies: Hx Bronchitis, Hx COPD, Hx Pneumonia Neurological Medical History: Denies: Hx Cerebrovascular Accident, Hx Seizures Renal/ Medical History: Denies: Hx Peritoneal Dialysis Musculoskeltal Medical History: Denies Hx Arthritis Past Surgical History: Reports: Hx Oral Surgery - precancerous mouth lesion, Hx Tonsillectomy - Immunizations Hx Diphtheria, Pertussis, Tetanus Vaccination: Yes Physical Exam - Vital signs Vitals: Temp Pulse Resp BP Pulse Ox 98.7 F 108 H 18 137/72 H 98 04/26/20 09:43 04/26/20 09:43 04/26/20 09:43 04/26/20 09:43 04/26/20 09:43 Course - Vital Signs Vital signs: Temp Pulse Resp BP Pulse Ox 98.7 F 108 H 18 137/72 H 98 04/26/20 09:43 04/26/20 09:43 04/26/20 09:43 04/26/20 09:43 04/26/20 09:43 Doctor's Discharge - Discharge Referrals: BARBARA RESENDEZ FNP [Primary Care Provider] - Follow up as needed
--- NOTE | 2020-04-26 11:27 | RADIOLOGY REPORT (SQ) ---
EXAM DESCRIPTION: SHOULDER RIGHT 2 OR MORE VIEWS IMAGES COMPLETED DATE/TIME: 04/26/2020 11:18 am REASON FOR STUDY: Right shoulder pain 2 weeks COMPARISON: None. NUMBER OF VIEWS: Three views. TECHNIQUE: Internal rotation, external rotation, and Y view images acquired of the right shoulder. LIMITATIONS: None. FINDINGS: MINERALIZATION: Normal. BONES: No acute fracture. No worrisome bone lesions. JOINTS: No dislocation. VISUALIZED LUNGS AND RIBS: No pneumothorax. No rib fracture. SOFT TISSUES: No radiopaque foreign body. OTHER: No other significant finding. IMPRESSION: 1. NEGATIVE STUDY OF THE RIGHT SHOULDER. TECHNICAL DOCUMENTATION: JOB ID: [id number] 2010 [employer]- All Rights Reserved Reading location - IP/workstation name: [email or web address]
--- NOTE | 2020-04-26 12:51 | RADIOLOGY REPORT (SQ) ---
EXAM DESCRIPTION: L SPINE WHOLE IMAGES COMPLETED DATE/TIME: 04/26/2020 12:43 pm REASON FOR STUDY: Low back pain 6 months COMPARISON: None. NUMBER OF VIEWS: Five views including obliques. TECHNIQUE: AP, lateral, oblique, and sacral radiographic images acquired of the lumbar spine. LIMITATIONS: None. FINDINGS: MINERALIZATION: Normal. SEGMENTATION: Normal. No transitional anatomy. ALIGNMENT: Normal. VERTEBRAE: Maintained height. No fracture or worrisome bone lesion. DISCS: Preserved height. No significant osteophytes or end plate irregularity. POSTERIOR ELEMENTS: Pedicles and facets are intact. No pars defect or posterior arch defects. HARDWARE: None in the spine. PARASPINAL SOFT TISSUES: Normal. PELVIS: Intact as visualized. No fractures or worrisome bone lesions. SI joints intact. OTHER: Prior cholecystectomy. IMPRESSION: 1. NORMAL 5 VIEW LUMBAR SPINE. TECHNICAL DOCUMENTATION: JOB ID: [id number] 2010 [employer]- All Rights Reserved Reading location - IP/workstation name: [email or web address]
[2020-04-26] MEDS ORDERED: KETOROLAC TROMETHAMINE 60 MG/2 ML SDV IM ONE (13:33)
--- NOTE | 2020-04-26 13:35 | ER Document Report ---
ED General - General Chief Complaint: Low Back Pain Stated Complaint: BACK PAIN Time Seen by Provider: 04/26/20 10:32 Primary Care Provider: BARBARA RESENDEZ FNP [Primary Care Provider] - Follow up as needed Mode of Arrival: Ambulatory TRAVEL OUTSIDE OF THE [place] IN LAST 30 DAYS: No - HPI Notes: Chief complaint: Right hip pain and right shoulder pain History of present illness: Generally healthy 25-year-old female taking no regular medications with no known allergies presents now with 2 to 3-week history of insidious onset right hip pain and right shoulder pain. She denies trauma. Both are aggravated by movement. Occasionally has burning sensation radiating down the posterior aspect of the right thigh. Symptoms are unchanged with cough or Valsalva. No bowel or bladder symptoms. Patient has had a cholecystectomy and excision of a benign lipoma from her back within the last 1 year. No other surgery. Last menses normal 2 weeks ago. Cigarette smoker. Rare social alcohol. 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 - Related Data Allergies/Adverse Reactions: No Known Allergies Allergy (Verified 04/26/20 13:06) Past Medical History - General Information source: Patient, [facility] Records - Social History Smoking Status: Current Some Day Smoker Frequency of alcohol use: Occasional Drug Abuse: None Family History: Reviewed & Not Pertinent - Past Medical History Cardiac Medical History: Denies: Hx Coronary Artery Disease, Hx Heart Attack, Hx Hypertension Pulmonary Medical History: Reports: Hx Asthma - MILD Denies: Hx Bronchitis, Hx COPD, Hx Pneumonia Neurological Medical History: Denies: Hx Cerebrovascular Accident, Hx Seizures Endocrine Medical History: Denies: Hx Diabetes Mellitus Type 1, Hx Diabetes Mellitus Type 2 Renal/ Medical History: Denies: Hx Peritoneal Dialysis Musculoskeletal Medical History: Denies Hx Arthritis Past Surgical History: Reports: Hx Cholecystectomy, Hx Oral Surgery - precancerous mouth lesion, Hx Tonsillectomy - Immunizations Hx Diphtheria, Pertussis, Tetanus Vaccination: Yes Review of Systems - Review of Systems Notes: Constitutional: Negative for fever. HENT: Negative for sore throat. Eyes: Negative for visual changes. Cardiovascular: Negative for chest pain. Respiratory: Negative for shortness of breath. Gastrointestinal: Negative for abdominal pain, vomiting or diarrhea. Genitourinary: Negative for dysuria. Musculoskeletal: As per HPI. Skin: Negative for rash. Neurological: Negative for headaches, focal weakness or numbness. 10 point ROS negative except as marked above and in HPI. Physical Exam - Vital signs Vitals: Temp Pulse Resp BP Pulse Ox 98.7 F 108 H 18 137/72 H 98 04/26/20 09:43 04/26/20 09:43 04/26/20 09:43 04/26/20 09:43 04/26/20 09:43 - Notes Notes: GENERAL: Well-developed well-nourished female of approximately stated age appearing in no acute distress. SKIN: Good turgor no rashes. HEAD: Normocephalic atraumatic. EYES: PERRLA. EOMI. Conjunctivae and sclerae clear. EARS: CANALS AND TMS CLEAR. NOSE: CLEAR. MOUTH: Moist mucosa. Good dentition. No stridor or edema. No drooling. NECK: Supple. No masses or thyromegaly. No adenopathy. Carotids 2+ without bruits. No JVD. BACK: Mild tenderness lumbar area and posterior aspect of right shoulder. Straight leg raising test is negative. Good range of motion of shoulder. Symmetrical without tenderness. CHEST: Respirations unlabored. Breath sounds clear and symmetrical. HEART: Regular rhythm. No murmur gallop or rub. ABDOMEN: Soft nontender without masses, organomegaly or rebound. Bowel sounds normally active. No bruits. GENITALIA: Deferred. EXTREMITIES: No edema. No calf tenderness. Cap refill less than 1.5 seconds. Dorsalis pedis and posterior tibial pulses 3+ and symmetrical. NEUROLOGICAL: GCS 15. Alert and oriented x3. Normal gait. Fluent speech. Cranial nerves II through XII intact. Sensorimotor and cerebellar normal. Normal tone. PSYCHIATRIC: Appropriate affect. Course - Re-evaluation Re-evalutation: 04/26/20 13:36 Patient appears to have a muscular strain. She is going to receive IM Toradol. Plain films were unremarkable. Findings, clinical impression and plan of treatment have been discussed with patient/family. Understanding of current findings and recommendations has been acknowledged by them and there is agreement regarding disposition and follow-up. - Vital Signs Vital signs: Temp Pulse Resp BP Pulse Ox 98.7 F 108 H 18 137/72 H 98 04/26/20 09:43 04/26/20 09:43 04/26/20 09:43 04/26/20 09:43 04/26/20 09:43 - Diagnostic Test Radiology reviewed: Image reviewed, Reports reviewed Radiology results interpreted by me: 04/26/20 13:36 Lumbar Spine X-Ray 04/26/20 10:36 IMPRESSION: 1. NORMAL 5 VIEW LUMBAR SPINE. Shoulder X-Ray 04/26/20 10:36 IMPRESSION: 1. NEGATIVE STUDY OF THE RIGHT SHOULDER. Discharge - Discharge Clinical Impression: Muscular strain back Muscle strain of right shoulder Qualifiers: Encounter type: initial encounter Qualified Code(s): S46.911A - Strain of unspecified muscle, fascia and tendon at shoulder and upper arm level, right arm, initial encounter Condition: Stable Disposition: HOME, SELF-CARE Instructions: Ice Packs ([facility]), Low Back Pain ([facility]), Muscle Strain ([facility]) Prescriptions: Cyclobenzaprine HCl [Flexeril 10 mg Tablet] 10 mg PO QHS PRN 5 Days #15 tablet PRN Reason: Ketorolac Tromethamine [Toradol 10 mg Tablet] 10 mg PO Q6HP PRN 10 Days #20 tablet PRN Reason: Forms: Return to Work Referrals: BARBARA RESENDEZ FNP [Primary Care Provider] - Follow up as needed
[2020-04-26 14:16] VITALS: BP 132/98
== END 2020-04-26 14:16 | disposition home or self-care (01) ==
LOC: ER 09:36
DX: S39.012A Strain of muscle, fascia and tendon of lower back, initial encounter (principal); S46.911A Strain of unspecified muscle, fascia and tendon at shoulder and upper arm level, right arm, initial encounter; X58.XXXA Exposure to other specified factors, initial encounter; M25.551 Pain in right hip; R20.8 Other disturbances of skin sensation; F17.200 Nicotine dependence, unspecified, uncomplicated; J45.909 Unspecified asthma, uncomplicated
CPT/HCPCS: 99284; 96372; 36415; 84703; 72110; 73030; J1885